=== PATIENT | male | born 1990 | race Caucasian/White ===

== ENCOUNTER → 2018-10-08 10:56 | Outpatient (CLI) | payer BC, SELFPAY ==
--- NOTE | 2018-10-08 11:03 | NVE_ITS ---
Venous Exam Indications: Follow-up DVT 453.40. IMPRESSIONS 1. There is no evidence of significant Reflux. 2. No evidence of deep or superficial vein thrombosis involving the right lower extremity History: Risk factors: Recent surgery: PT PLATEAU OPEN REDUCTION AND INTERNAL FIXATION ON 09/15/16, FASCIOTOMY 09/17/18, CLOSURE 09/22/18. Medications: Eliquis. Right lower extremity venous duplex evaluation. Doppler flow study including spectral analysis, color and amin scale imaging. Location: Vascular laboratory. Patient status: Outpatient. Tables: Venous flow and imaging: + +-------+ + Location Overall Flow properties + +-------+ + Right common femoral Patent Normal phasicity; spontaneous; normal augmentation; compressible + +-------+ + Right saphenofemoral junction Patent Compressible + +-------+ + Right profunda femoral Patent Compressible + +-------+ + Right femoral Patent Normal phasicity; spontaneous; normal augmentation; compressible + +-------+ + Right greater saphenous Patent Normal phasicity; spontaneous; normal augmentation; compressible + +-------+ + Right popliteal Patent Normal phasicity; spontaneous; normal augmentation; compressible + +-------+ + Right posterior tibial Patent Compressible + +-------+ + Right peroneal Patent Compressible + +-------+ + Right gastrocnemius Patent Compressible + +-------+ + Right soleal Patent Compressible + +-------+ + (Report amended ) Electronically signed by: Torres Swanson [id number]
== END ==
PROVIDERS: PCP Family Medicine; Visit Provider Orthopaedic Surgery
DX: I82.401 Acute embolism and thrombosis of unspecified deep veins of right lower extremity (principal)
CPT/HCPCS: 93971

== ENCOUNTER → 2018-11-10 09:22 | Outpatient (CLI) | payer BC, SELFPAY ==
--- NOTE | 2018-11-10 09:28 | CT_ITS ---
CT head/brain wo con HISTORY: ITS.REASON: POSSIBLE INTERCRANIAL BLEED/DVT PROPHYLAXIS ORDERING PHYSICIAN: Roby Ervin MD PATIENT AGE: 28 years COMPARISON: None TECHNIQUE: Axial images obtained without contrast. Brain and bone windows reviewed. All CT scans at the facility use one or more dose reduction, viz: automated exposure control, ma/kV adjustment per patient size (including targeted exams where dose is matched to indication, i.e. head), or iterative reconstruction technique. FINDINGS: No midline shift, mass effect, intracranial hemorrhage, hydrocephalus, or extra-axial fluid collection is evident. The calvarium has an unremarkable appearance. No mastoid effusion. No sinus air-fluid levels.. IMPRESSION: Negative CT head without contrast. No acute finding
== END ==
PROVIDERS: PCP Family Medicine; Visit Provider Orthopaedic Surgery
DX: I61.9 Nontraumatic intracerebral hemorrhage, unspecified (principal)
CPT/HCPCS: 70450

== ENCOUNTER 2020-12-27 11:10 | Emergency (ER) | payer BC, SELFPAY ==
[2020-12-27 12:39] VITALS: BP 131/71; PULSE 78; RESP 18; TEMP 36.9; O2SAT 99; BMI 30.3
[2020-12-27 12:42] VITALS: BP 131/71; PULSE 78; RESP 18; TEMP 36.9
--- NOTE | 2020-12-27 13:21 | HMH.EDUTC ---
[facility] Disposition Clinical Impression: Viral syndrome Disposition: Home, Self-Care Condition on Discharge: Good Instructions: DI for Viral Syndrome, DI for COVID-19 (Suspected or Confirmed ), Preventing the Spread of Coronavirus Discharge Instructions Additional Instructions: Drink plenty of fluids. Take tylenol for pain or fever. Return if you begin to have difficulty breathing. Follow up with your regular doctor. GO TO THE ER FOR ANY WORSENING SYMPTOMS Quarantine until you know the results of your covid-19 test. If it is positive, the health department should call you and give you further instructions about your length of Quarantine and other things. Notify your school or workplace of your results and follow their instructions regarding return to work/school. Prescriptions: Brompheniramine/Pseudoephed/Dm [Bromfed Dm Cough Syrup] 5 ml PO Q6HP PRN #240 ml PRN Reason: Cough Transmission Status: Received by [id number] Ondansetron [Zofran 4mg ODT] 4 mg PO DAILYP PRN #12 tab PRN Reason: Nausea Transmission Status: Received by [id number] Referrals: Marcell Mckinney MD [Primary Care Provider] - Forms: Work/School Release Time of Disposition: 13:23 Medical Decision Making - Medical Records Medical records reviewed: No: I reviewed the patient's medical records. - Pasha Inquiry Pt receiving controlled substance: No Vital Signs: 12/27/20 12:39 12/27/20 12:42 Temperature 98.5 F 98.5 F Temperature Source Oral Pulse Rate 78 Pulse Rate [Left] 78 Respiratory Rate 18 18 Blood Pressure 131/71 Blood Pressure [Right Arm] 131/71 Blood Pressure Mean [Right Arm] 91 02 Sat by Pulse Oximetry 99 [facility] HPI - General Stated complaint: covid test Time Seen by Provider: 12/27/20 13:00 Mode of Arrival: Ambulatory Source of Information: Patient Limitations: No Limitations Description of Symptoms (Recalled from Triage Doc. by RN): pt c/o congestion, fatigue, runny nose, cough and RAY HEENT Symptoms (Recalled from RN notes): Yes (ARY, congestion and nasal drainage) Resp Symptoms (Recalled from RN notes): Yes (cough) Skin Symptoms (Recalled from RN notes): No MS Symptoms (Recalled from RN notes): No Functional Status (Recalled from RN notes): fatigue - History of Present Illness Provider Complaint: He has had sinus congestion and he has felt bad. He was exposed to covid 4 days ago. - Related Data Previous Rx's Medication Instructions Recorded Brompheniramine/Pseudoephed/Dm 5 ml PO Q6HP PRN #240 ml 12/27/20 [Bromfed Dm Cough Syrup] Ondansetron [Zofran 4mg ODT] 4 mg PO DAILYP PRN #12 tab 12/27/20 Allergies Allergy/AdvReac Type Severity Reaction Status Date / Time cefaclor [From CECLOR] Allergy Unknown Unverified 04/09/17 14:51 ciprofloxacin [From CIPRO] Allergy Unknown Unverified 04/09/17 14:51 - Worker's Comp Is this a Worker's Comp case?: No [facility] History - Hepatitis A Screen Drug use history?: No High risk sexual behaviors?: No History of sexually transmitted infection?: No Currently employed?: No Childcare worker?: No Do you have indoor plumbing?: Yes Do you have electricity?: Yes Attestation statement:: This patient has been screened for Hepatitis A risk factors. I have reviewed the patient's past medical history: Yes ROS Obtained: Yes All systems reviewed & no additional complaints - Constitutional Constitutional: Reports system reviewed and no additional complaints, except as docu - Eyes Eyes: Reports system reviewed and no additional complaints, except as docu - ENT Ears, Nose, Mouth, and Throat: Reports system reviewed and no additional complaints, except as docu - Cardiovascular Cardiovascular: Reports system reviewed and no additional complaints, except as docu - Respiratory Respiratory: Reports system reviewed and no additional complaints, except as docu - Gastrointestinal Gastrointestingal: Reports: system re
== END 2020-12-27 13:31 | disposition home or self-care (01) ==
PROVIDERS: Emergency Provider Nurse Practitioner Family; PCP Family Medicine
DX: Z20.822 Contact with and (suspected) exposure to COVID-19 (principal)
CPT/HCPCS: 99202; G0463; U0003

== ENCOUNTER → 2021-05-03 15:42 | Outpatient (CLI) | payer BC, SELFPAY | PROVIDERS: Visit Provider Nurse Practitioner | DX: U07.1 COVID-19 (principal) | CPT/HCPCS: C9803; U0003; U0005 ==

== ENCOUNTER → 2021-05-23 12:13 | Outpatient (CLI) | payer BC, SELFPAY ==
[2021-05-24 13:10] LABS: H. pylori Breath Test Negative (Negative)
== END ==
PROVIDERS: PCP Family Medicine; Visit Provider Family Medicine
DX: R12 Heartburn (principal); K21.9 Gastro-esophageal reflux disease without esophagitis
CPT/HCPCS: 83013

== ENCOUNTER → 2021-08-01 12:03 | Outpatient (CLI) | payer BC, SELFPAY ==
--- NOTE | 2021-08-01 12:18 | XR_ITS ---
FINAL REPORT CLINICAL HISTORY: IVETTE FOOT PAIN FINDINGS: RIGHT FOOT Three views were obtained. There is no acute fracture or dislocation. The joint spaces appear normal. No soft tissue abnormality is identified. 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 IMPRESSION: No acute process. Reviewed, Interpreted and Dictated by Yaya Bustos MD Transcribed by Nely Gale Authenticated by Yaya Bustos MD on 08/01/2021 04:11:48 PM [facility]
--- NOTE | 2021-08-01 12:18 | XR_ITS ---
FINAL REPORT CLINICAL HISTORY: IVETTE FOOT PAIN FINDINGS: LEFT FOOT Three views were obtained. There is no acute fracture or dislocation. The joint spaces appear normal. No soft tissue abnormality is identified. 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 IMPRESSION: No acute process. Reviewed, Interpreted and Dictated by Yaya Bustos MD Transcribed by Nely Gale Authenticated by Yaya Bustos MD on 08/01/2021 04:11:52 PM [facility]
--- NOTE | 2021-08-01 12:18 | XR_ITS ---
FINAL REPORT CLINICAL HISTORY: . FINDINGS: THORACIC SPINE. Four views demonstrate no acute fracture. The disc spaces are well preserved. There is no malalignment. IMPRESSION: No acute process. LUMBAR SPINE. Four views demonstrate no acute fracture. The disc spaces are well preserved. There is no malalignment. IMPRESSION: No acute process. Reviewed, Interpreted and Dictated by Yaya Bustos MD Transcribed by Nely Gale Authenticated by Yaya Bustos MD on 08/01/2021 03:29:09 PM [facility]
== END ==
PROVIDERS: PCP Family Medicine; Visit Provider Nurse Practitioner Family
DX: M79.671 Pain in right foot (principal); M79.672 Pain in left foot; M54.50 Low back pain, unspecified
CPT/HCPCS: 72084; 73630

== ENCOUNTER 2021-10-31 16:00 | Outpatient (RCR) | payer BC, SELFPAY ==
--- NOTE | 2021-10-16 10:47 | HMH.PTOPEV ---
PT Outpatient Evaluation Rehab PT Outpatient Evaluation Start: 10/16/21 10:34 Freq: Status: Active Protocol: Document 10/16/21 10:34 MACARIO (Rec: 10/16/21 10:47 MACARIO [id number]) Electronically Signed By Steven Villagomez, JADE 10/16/21 10:34 Outpatient Therapy Subjective History Subjective History This is the initial Physical THerapy evaluation for Remy Germainrow. Pt rperots to PT for c/o B foot pain. Pt reports pain began insidiously ~ 5 years ago. Pt reports pain has been intermittant but has not relented in severity, with an actual increase overall. Pt reports his whole foot from ankle down can hurt Pt reports pain is still intermittant but he is unsure of any aggravating factors. 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 Chief Complaint Pain Symptom Type Ache,Throb,Sharp Symptoms Relieved By Nothing Prior Functional Limitations None Current Functional Limitations Standing,Recreation Activity, Walking Symptom Description Intermittent Level of pain today (0-10) 4 Pain scale - at its best (0-10) 0 Pain scale - at its worst (0-10) 7 Ankle/Foot Eval Gait Observation General Gait Pattern Observation Antalgic Gait Assistive Device Ambulation Assistive Device None Palpation Tenderness bilateral Ankle/Foot Palpation Findings Tenderness,Trigger Point, Muscle Guarding Ankle/Foot Palpation Overall Comment TTP along arch and medial ankle ATF TTP negative PTF TTP negative CF TTP negative Deltoid ligament TTP negative ROM left Ankle/Foot Dorsiflexion w/Knee Extended 10 from neutral Active Range Motion (degrees) Ankle/Foot Plantar Flexion Active Range 45 of Motion (degrees) Ankle/Foot Eversion Active Range of 15 Motion (degrees) Ankle/Foot Inversion Active Range of 25 Motion (degrees) Ankle/Foot ROM Limitations Soft Tissue Tightness,Pain right Ankle/Foot Dorsiflexion w/Knee Extended 20 from neutral Active Range Motion (degrees) Ankle/Foot Plantar Flexion Active Range 55 of Motion (degrees) Ankle/Foot Eversi
== END 2021-10-31 16:05 | disposition home or self-care (01) ==
LOC: PT 16:00
PROVIDERS: PCP Family Medicine; Visit Provider Podiatrist
DX: M76.821 Posterior tibial tendinitis, right leg (principal); M76.822 Posterior tibial tendinitis, left leg; M79.671 Pain in right foot; M79.672 Pain in left foot; M21.41 Flat foot [pes planus] (acquired), right foot; M21.42 Flat foot [pes planus] (acquired), left foot
CPT/HCPCS: 97110; 97163

== ENCOUNTER → 2021-12-04 14:24 | Outpatient (CLI) | payer BC, SELFPAY ==
--- NOTE | 2021-12-04 14:24 | MR_ITS ---
FINAL REPORT CLINICAL HISTORY: chronic ankle pain.BILATERAL FEET AND ANKLE PAIN. SYMPTOMS XYEARS. NO INJURY OR TRAUMA. FINDINGS: Multiplanar MR imaging of the left ankle was performed without contrast. The bony structures are intact without evidence of fracture, bone bruise or marrow edema. No osteochondral lesion is identified. The ligaments are intact without evidence of injury. There is mild posterior tibial tenosynovitis. The tendons are otherwise unremarkable. The posterior plantar aponeurosis is intact. No significant joint effusion is seen. The musculature is intact. There is no evidence of soft tissue mass or cyst. IMPRESSION: Mild posterior tibial tenosynovitis. Otherwise, unremarkable exam. Reviewed, Interpreted and Dictated by Jefe Syed III, MD Transcribed by Analy Ford Authenticated and [facility]
--- NOTE | 2021-12-04 14:24 | MR_ITS ---
PROCEDURE INFORMATION: Exam: MR Right Lower Extremity Joint Without Contrast; Ankle Exam date and time: 12/04/2021 2:46 PM Age: 31 years old Clinical indication: Pain; Ankle; Right; Additional info: Chronic right ankle pain TECHNIQUE: Imaging protocol: Magnetic resonance imaging of the Right lower extremity without contrast. Exam focused on the ankle. COMPARISON: CR XR FOOT RT MIN 3V 08/01/2021 12:31 PM FINDINGS: Bones and cartilage: Unremarkable. Joint spaces: No joint effusion. LIGAMENTS: Distal tibiofibular syndesmosis: Unremarkable. No tear. Anterior talofibular ligament: Unremarkable. No tear. Posterior talofibular ligament: Unremarkable. No tear. Calcaneofibular ligament: Unremarkable. No tear. Deltoid ligament complex: Unremarkable. No tear. TENDONS: Flexor tendons of foot: Unremarkable as visualized. Tibialis posterior tendon: Unremarkable as visualized. Peroneal tendons: Unremarkable as visualized. Extensor tendons of foot: Unremarkable as visualized. Tibialis anterior tendon: Unremarkable as visualized. Achilles tendon: Unremarkable as visualized. Tarsal canal (Sinus tarsi): Unremarkable. Normal signal of the fat. Tarsal tunnel: Unremarkable. Muscles: Unremarkable. Soft tissues: Unremarkable. Plantar fascia: Plantar fascia is unremarkable. IMPRESSION: Unremarkable MR ankle and hind foot.
--- NOTE | 2021-12-04 14:31 | XR_ITS ---
FINAL REPORT CLINICAL HISTORY: RULE OUT METAL FOREIGN BODY FOR MRI. prior history metal in both eyes. FINDINGS: ORBITS SERIES Two views of the orbits were obtained. There is no acute fracture or dislocation. Visualized sinuses are clear. No radiopaque foreign body is identified. IMPRESSION: No acute bony abnormality or radiopaque foreign body identified. Reviewed, Interpreted and Dictated by Jefe Syed III, MD Transcribed by Analy Ford Authenticated and [facility]
== END ==
LOC: RAD 14:24
PROVIDERS: PCP Family Medicine; Visit Provider Podiatrist
DX: M76.821 Posterior tibial tendinitis, right leg (principal); M76.822 Posterior tibial tendinitis, left leg; M25.371 Other instability, right ankle; H05.53 Retained (old) foreign body following penetrating wound of bilateral orbits
CPT/HCPCS: 70200; 73721

== ENCOUNTER 2023-01-06 08:15 | Emergency (ER) | payer BC, SELFPAY ==
[2023-01-06 08:20] VITALS: BP 132/89; PULSE 81; RESP 18; TEMP 37; O2SAT 98; BMI 30.1
--- NOTE | 2023-01-06 08:35 | EXP.UTC ---
Discharge Plan Disposition Patient Disposition: Home, Self-Care Condition: Good Prescriptions Prescriptions: New azithromycin [Zithromax Z-Antonio] 250 mg tablet See Rx Instructions .ROUTE .COMPLEX 5 Days Qty: 6 0RF Rx Instructions: For 250 mg dose pack: take 500 mg today (day 1), then 250 mg for 4 days (days 2-5) benzonatate 100 mg capsule 100 mg PO TID PRN (Reason: cough) Qty: 30 0RF methylprednisolone [Medrol (Antonio)] 4 mg tablets,dose pack See Rx Instructions .Route .COMPLEX 6 Days Qty: 21 0RF Rx Instructions: taper pack; No Action pantoprazole 40 mg tablet,delayed release (DR/EC) 40 mg PO BID Referrals Follow up/Referrals: Marcell Mckinney MD [Primary Care Provider] - See instructions Activity Restrictions/Add. Instructions Additional Instructions/Restrictions: *Monitor Temp, Over the counter Motrin or Tylenol as directed/as needed Tylenol every 4 hours and Motrin every 6 hours (as long as your family doctor has told you that you can take it) for fever or pain. and straight to ER if unable to lower temp less than 101.0 after medication given *Warm salt water gargles may help to soothe the throat *Throat Lozenges? *Warm fluids like tea with honey may help to soothe the throat? *Sleep elevated *Humidifier/Vaporizer Follow up IMMEDIATELY for new or worsening symptoms or no Noticeable improvement over the next 48-72 hours. 911 for difficulty breathing or swallowing Clinical Impressions Clinical Impression: Sinusitis Qualifiers: Sinusitis location: unspecified location Chronicity: unspecified Qualified Code(s): J32.9 - Chronic sinusitis, unspecified Instructions Patient Instructions: Sinusitis, DI for Sinusitis Discharge ED Provider: Vanessa Castro [facility] General Stated complaint: congestion, runny nose Mode of Arrival: Ambulatory Source of Information: Patient Limitations: No Limitations Time Seen by Provider: 01/06/23 08:35 Description of Symptoms (Recalled from Triage Doc. by RN): Sinus pressure since last night HEENT Symptoms (Recalled from RN notes): Yes Resp Symptoms (Recalled from RN notes): No Skin Symptoms (Recalled from RN notes): No MS Symptoms (Recalled from RN notes): No Functional Status (Recalled from RN notes): n/a History of Present Illness Provider Complaint: Patient states he gets a sinus infection about this time every year States that he has been having sinus congestion and drainage then yesterday the pressure started and pressure behind his eyes and cough So today he came in to get checked Related Data Home Medications Medication Instructions Recorded Confirmed pantoprazole 40 mg tablet,delayed 40 mg PO BID GERD 09/05/21 01/06/23 release Previous Rx's Medication Instructions Recorded azithromycin 250 mg tablet See Rx Instructions PO .COMPLEX 5 01/06/23 (Zithromax Z-Antonio) days #6 tabs benzonatate 100 mg capsule 100 mg PO TID PRN cough #30 caps 01/06/23 methylprednisolone 4 mg tablets in See Rx Instructions .Route 01/06/23 a dose pack (Medrol (Antonio)) .COMPLEX 6 days #21 tabs Allergies Allergy/AdvReac Type Severity Reaction Status Date / Time cefaclor [From CECLOR] Allergy Unknown Verified 01/06/23 08:29 ciprofloxacin [From CIPRO] Allergy Unknown Verified 01/06/23 08:29 Worker's Comp Is this a Worker's Comp case?: No [facility] Disclaimer: The information contained in this section may have been updated after the patient was seen, as this information can be updated by other users. Social History Smoking Status: Current some day smoker tobacco type: cigarettes packs per day: 1 alcohol intake: never substance use type: denies use current occupational status: employed Travel in the last 8 weeks: None ROS Obtained: Yes All systems reviewed & no additional complaints except as documented and Yes Systems reviewed as appropriate
[2023-01-06 08:45] VITALS: BP 129/69; PULSE 73; RESP 18; TEMP 36.6; O2SAT 98
== END 2023-01-06 09:01 | disposition home or self-care (01) ==
PROVIDERS: Emergency Provider Nurse Practitioner; PCP Family Medicine
DX: J01.90 Acute sinusitis, unspecified (principal); F17.210 Nicotine dependence, cigarettes, uncomplicated
CPT/HCPCS: 99212; 99214; G0463

== ENCOUNTER 2024-03-10 10:14 | Outpatient (CLI) | payer BC, SELFPAY ==
--- NOTE | 2024-03-10 10:21 | XR_ITS ---
PROCEDURE INFORMATION: Exam: XR Left Shoulder Exam date and time: 03/10/2024 10:40 AM Age: 33 years old Clinical indication: Pain; Shoulder; Left; Additional info: Pain in neck that radiates to left shoulder blade. Muscle spasms & spurs. TECHNIQUE: Imaging protocol: Radiologic exam of the left shoulder. Views: 2 or more views. COMPARISON: CR XR CERVICAL SPINE 5V 03/10/2024 10:40 AM FINDINGS: Bones/joints: The glenohumeral joint is intact. There is mild hypertrophy of the acromioclavicular joint. Soft tissues: Normal. IMPRESSION: Mild left acromioclavicular joint hypertrophy.
--- NOTE | 2024-03-10 10:21 | XR_ITS ---
PROCEDURE INFORMATION: Exam: XR Cervical Spine Exam date and time: 03/10/2024 10:40 AM Age: 33 years old Clinical indication: Neck pain; Additional info: Pain in neck that radiates to left shoulder blade. Muscle spasms & spurs. TECHNIQUE: Imaging protocol: Radiologic exam of the cervical spine. Views: 4 or 5 views. COMPARISON: CR XR MULTIPLE SPINE 6+V 08/01/2021 12:31 PM FINDINGS: Bones/joints: There is reversal of normal cervical lordosis. There is mild multilevel degenerative disc disease. No acute fracture. Normal alignment. Soft tissues: Unremarkable. IMPRESSION: No acute findings.
== END 2024-03-10 23:59 | disposition home or self-care (01) ==
PROVIDERS: PCP Nurse Practitioner Family; Visit Provider Nurse Practitioner Family
DX: M54.2 Cervicalgia (principal); M25.512 Pain in left shoulder; M62.48 Contracture of muscle, other site
CPT/HCPCS: 72050; 73030